=== PATIENT | female | born 1985 | race Caucasian/White ===

== ENCOUNTER → 2017-03-03 | Outpatient (CLI) | payer OTHER ==
[~2017-03-03] MED LIST: ACET1TAB43 PO; PREN-93 PO
--- NOTE | 2017-03-03 13:54 | Diagnostic Imaging Report ---
First trimester OB ultrasound. INDICATION: Dating. FINDINGS: There is a normal-appearing single intrauterine . An embryo is seen with cardiac activity at 174 beats per minute. The crown-rump length is at 9 weeks and 3 days. VIRA is 10/03/17. The uterus is retroflexed. There is a prominent hypoechoic area within the posterior aspect of the myometrium measuring 4 x 4.1 x 3.4 CM in size. This could be related to focal myometrial contraction versus a fibroid. Ovaries are obscured. IMPRESSION: 1. Live single intrauterine . 2. A 4 CM hypoechoic indeterminate lesion along the posterior myometrium could be related to focal myometrial contraction versus a fibroid. Reevaluation on followup exams recommended. Dictated by: Dictated on workstation # [id number]
== END ==
LOC: RAD 12:49
PROVIDERS: ATTEND Family Medicine
DX: Z34.81 Encounter for supervision of other normal pregnancy, first trimester (principal); Z3A.09 9 weeks gestation of pregnancy
CPT/HCPCS: 76801; 76817

== ENCOUNTER → 2017-05-16 | Outpatient (CLI) | payer SELFPAY ==
--- NOTE | 2017-05-16 11:27 | Diagnostic Imaging Report ---
INDICATION: survey. TECHNIQUE: Multiple real-time grayscale images were obtained over the gravid uterus. COMPARISON: 03/03/2017. FINDINGS: The heart rate is 143 beats per minute. The placenta is posterior. No placenta previa. The cervix appears closed and about 5.5 cm in length. The anatomy evaluation demonstrates normal appearance of the bladder and suggestion of two umbilical arteries. No ventriculomegaly. The four-chamber view appears unremarkable. The spine appears unremarkable. The stomach is seen. No hydronephrosis or cystic mass at the level of the kidneys. The cord insertion appears unremarkable. Biometrical measurements are as follows: Biparietal 4.43 cm, age 19 weeks 3 days. Head circumference 16.96 cm, age 19 weeks 5 days. Abdominal circumference 14.26 cm, age 19 weeks 5 days. Femur length 3.28 cm, age 20 weeks 2 days. Sonographic estimate age: 19 weeks 6 days. This compares with gestational age of 20 weeks and 0 day based on provided VIRA of 10/03/2017. Sonographic estimated date of delivery: 10-04-17. Estimated Weight: 317 gm (+/- 46 gm). LMP percentile: 37%. heart rate: 153 beats per minute. number: 1 of 1. IMPRESSION: Completed survey. Appropriate interval growth. Dictated by: Dictated on workstation # [id number]
== END ==
LOC: RAD 09:48
PROVIDERS: ATTEND Family Medicine
DX: Z36 Encounter for antenatal screening of mother (principal); Z3A.19 19 weeks gestation of pregnancy
CPT/HCPCS: 76805

== ENCOUNTER 2017-09-25 19:50 | Inpatient (IN) | payer MEDICAID ==
[~2017-09-25] VITALS: Ht 166.4 cm; Wt 96.2 kg
--- OUTSIDE RECORDS SUMMARY | 2017-09-25 19:55 | XMS REPORT | Continuity of Care Document ---
Author Author [facility] Address Unknown Phone Unavailable Allergies There is no data. Medications There is no data. Problems Date Dx Coded Attending Type Code Diagnosis Diagnosed By 09/14/2010 EATON SERVICER, ANTHONY L 789.09 Abdominal Pain Other Specified Site 09/14/2010 EATON SERVICER, ANTHONY L V22.2 Incidental 09/14/2010 EATON SERVICER, ANTHONY L 789.09 Abdominal Pain Other Specified Site 09/14/2010 EATON SERVICER, ANTHONY L V22.2 Incidental 02/17/2011 EATON SERVICER, ANTHONY L V22.1 , Normal Other 02/17/2011 EATON SERVICER, ANTHONY L V22.1 , Normal Other 03/02/2011 EATON SERVICER, ANTHONY L 623.5 Leukorrhea Not Specified As Infective 03/02/2011 EATON SERVICER, ANTHONY L V72.31 LOGISTICAL ENGINEER EXAM, ROUTINE 03/02/2011 EATON SERVICER, ANTHONY L 623.5 Leukorrhea Not Specified As Infective 03/02/2011 EATON SERVICER, ANTHONY L V72.31 LOGISTICAL ENGINEER EXAM, ROUTINE 06/28/2011 EATON SERVICER, ANTHONY L 724.2 lower back pain 06/28/2011 EATON SERVICER, ANTHONY L V24.2 Routine Follow-up 06/28/2011 EATON SERVICER, ANTHONY L 724.2 lower back pain 06/28/2011 EATON SERVICER, ANTHONY L V24.2 Routine Follow-up 10/15/2011 EATON SERVICER, ANTHONY L V72.42 EXAMINATION OR TEST POSITIVE RESULT 10/15/2011 EATON SERVICER, ANTHONY L V72.42 EXAMINATION OR TEST POSITIVE RESULT 10/28/2011 EATON SERVICER, ANTHONY L V22.1 , Normal Other 10/28/2011 EATON SERVICER, ANTHONY L V22.1 , Normal Other 12/06/2011 ANTHONY STOVER APRN 656.13 RH NEGATIVE 12/06/2011 ANTHONY STOVER APRN L 656.13 RH NEGATIVE 01/17/2012 ANTHONY STOVER APRN L 530.81 ESOPHAGEAL REFLUX 01/17/2012 ANTHONY STOVER APRN L 553.1 UMBILICAL HERNIA WITHOUT OBSTRUCTION OR GANGRENE 01/17/2012 ANTHONY STOVER APRN L 649.60 Uterine Size Date Discrepancy Unspecified As To Episode Of Care Or Not Applicable 01/17/2012 ANTHONY STOVER APRN L 530.81 ESOPHAGEAL REFLUX 01/17/2012 ANTHONY STOVER APRN L 553.1 UMBILICAL HERNIA WITHOUT OBSTRUCTION OR GANGRENE 01/17/2012 ANTHONY STOVER APRN L 649.60 Uterine Size Date Discrepancy Unspecified As To Episode Of Care Or Not Applicable 05/08/2012 JOLANTA MÉNDEZNANTHONY Rafael 649.00 TOBACCO USE DISORDER COMPLICATING CHILDBIRTH OR THE PUERPERIUM UNSPECIFIED TO EPISODE OF CARE OR NOT APPLICABLE 05/08/2012 JOLANTA MÉNDEZNANTHONY Rafael 649.00 TOBACCO USE DISORDER COMPLICATING CHILDBIRTH OR THE PUERPERIUM UNSPECIFIED TO EPISODE OF CARE OR NOT APPLICABLE 08/18/2012 ERGLADESHAUN MOHAN ANTHONY L V25.9 Gynecologic Services Contraceptive Management 08/18/2012 REGLADESHAUN SERVICER, ANTHONY L V25.9 Gynecologic Services Contraceptive Management Procedures Code [place] [address] THERAPUTIC INJ SQ/IM 08/18/2012 J1055 DEPO-PROVERA INJ 150 MG 08/18/2012 83516 XRAY THORACIC SPINE 2 VIEWS 08/18/2012 00895 XRAY LUMBAR SPINE 2 OR 3 VIEWS 08/18/2012 99674 URINE TEST (IN- HOUSE) 08/18/2012 Results There is no data. Encounters ACCT No. Visit Date/Time Discharge Status Pt. Type Provider Facility Loc./Unit Complaint [id number] 08/18/2012 11:32:00 08/18/2012 23:59:59 CLS Outpatient ANTHONY STOVER APRN [id number] 08/18/2012 11:32:00 08/18/2012 23:59:59 CLS Outpatient ANTHONY STOVER APRN
[2017-09-25 20:11] VITALS: BP 136/82
[2017-09-25] MEDS ORDERED: LACTATED RINGERS 1,000 ML IV ONE (20:17)
[2017-09-25] MEDS ORDERED: ZOLP10TA PO (20:24)
[2017-09-25] MEDS ORDERED: HYDR50CA PO (20:24)
[2017-09-25] MEDS ORDERED: RANI150T15 PO (20:24)
[2017-09-25] MEDS: LACTATED RINGERS 1,000 ML IV SCH (20:45)
[2017-09-25] MEDS ORDERED: D5 LR IV SOLUTION 1,000 ML IV ONE (21:32)
[2017-09-25] MEDS: D5 LR IV SOLUTION 1,000 ML IV SCH (21:45)
[2017-09-25] MEDS ORDERED: MISOPROSTOL 100 MCG (CYTOTEC) TAB ONE (21:48)
[2017-09-25] MEDS: MISOPROSTOL 100 MCG (CYTOTEC) TAB PV SCH (21:52)
[2017-09-25] MEDS ORDERED: TERBUTALINE INJ 1 MG/ML (BRETHINE) AMP SC PRN (22:00)
[2017-09-25] MEDS ORDERED: MINERAL OIL CONCENTRATE 99.9% 15 ML UDC TOP PRN (22:15)
[2017-09-25 22:16] LABS: BASOPHILS % (AUTO) 0 % (0-10); EOSINOPHILS # (AUTO) 0.1 10^3/uL (0.0-0.3); EOSINOPHILS % (AUTO) 1 % (0-10); LYMPHOCYTES # (AUTO) 1.5 X 10^3 (1.0-4.0); LYMPHOCYTES % (AUTO) 21 % (12-44); MEAN CORPUSCULAR HEMOGLOBIN 30 PG (25-34); MEAN CORPUSCULAR HGB CONC 33 G/DL (32-36); MEAN CORPUSCULAR VOLUME 90 FL (80-99); MEAN PLATELET VOLUME 10.3 FL (7.4-10.4); MONOCYTES # (AUTO) 0.6 X 10^3 (0.0-1.0); MONOCYTES % (AUTO) 8 % (0-12); NEUTROPHILS # (AUTO) 5.2 X 10^3 (1.8-7.8); NEUTROPHILS % (AUTO) 70 % (42-75); PLATELET COUNT 206 10^3/uL (130-400); RED BLOOD COUNT 4.09 10^6/uL (4.35-5.85); RED CELL DISTRIBUTION WIDTH 13.7 % (10.0-14.5); WHITE BLOOD COUNT 7.4 10^3/uL (4.3-11.0)
[2017-09-25] MEDS ORDERED: WITCH HAZEL(TUCKS) 40 EA JAR ONE (22:52)
[2017-09-25] MEDS ORDERED: BUTORPHANOL INJ 2 MG/ML (STADOL) VIAL IV ONE (23:00)
[2017-09-25] MEDS ORDERED: ZOLPIDEM 5 MG (AMBIEN) TAB PO PRN (23:00)
[2017-09-25] MEDS ORDERED: PROMETHAZINE INJ 25 MG/ML (PHENERGAN) AMP IVP PRN (23:00)
[2017-09-25] MEDS ORDERED: WITCH HAZEL(TUCKS) 40 EA JAR TOP PRN (23:00)
[2017-09-25 23:19] VITALS: BP 130/81
[2017-09-26] VITALS (52 sets, daily range): BP systolic 86–145; BP diastolic 55–92
[2017-09-26] MEDS: MISOPROSTOL 100 MCG (CYTOTEC) TAB PV SCH ×2 (02:05→06:23)
[2017-09-26] MEDS: CATHETER FLUSH 10 ML SYR IV SCH (04:19)
--- NOTE | 2017-09-26 05:51 | History & Physical-OB ---
OB - Chief Complaint & HPI Date/Time Date of Admission: Date of Admission: Sep 25, 2017 at 19:50 Time Seen by Provider: 21:00 Chief Complaint/History OB-Reason for Admission/Chief: Induction of Labor Hx : 4 Hx Para: 3 Hx Last Menstrual Period: 12/27/16 Estimated Date of Conception: 10/03/17 Expected Date of Delivery: Oct 03, 2017 Gestational Age in Weeks: 39 Gestational Age in Days: 0 Indication for induction: maternal discomfort Admission Nurse Assessment Rev: Yes History of Labs A negative, Antibody Negative, Rubella Immune, Hep B Negative, HIV Negative, HIV Negative Allergies and Home Medications Allergies Coded Allergies: No Known Drug Allergies (Unverified , 04/26/11) Home Medications Vit/Fe Fumarate/Fa 1 Each Tablet, 1 EACH PO, (Reported) OB - History Hx of Present Care: Yes Ultrasounds: Normal mid trimester US Medical Complications: Gastrointestinal (heartburn associated with , insomia associated with ) Information Pre-Hospital Medication Admins: PNV, Zantac, Flexeril PRN, Ambien PRN, Vistaril PRN Induced Hypertension: No Maternal Gestational Diabetes: No Hemorrhage: No Obstetrical History Hx : 4 Hx Para: 3 Hx # Term Pregnancies: 0 Hx # Pregnancies: 0 Number of Living Children: 3 Hx Termination: No Hx Total # of Abortions (Spona: 0 Hx Multiple Gestation: No Hx Ectopic : No Hx Stillbirth: No Hx Complication: No Hx Induced Hypertens: No Hx Maternal Gestational Diabet: No Hx Hemorrhage: No Delivery History Hx Dystocia: No Hx Forceps Assisted Delivery: No Hx Vacuum Extraction Assisted: No Hx Placenta Abnormality: No Hx Distress: No Hx Large For Gestational Age I: No Hx Small for Gestational Age I: No Hx Section: No Hx Vaginal Delivery Post C-Sec: No Hx Blood Disorders: No Adverse Rxn to Tranfusion: No Patient Past Medical History Heartburn Low Back Pain Social History/Family History HIV/AIDS: No Recent Infectious Disease Expo: No Alcohol Use: Denies Use Recreational Drug Use: No Smoking Cessation: Never smoker 2nd Hand Smoke Exposure: No Immunizations Hepatitis A: No Hepatitis B: Yes Tetanus Booster (TDap): Less than 5yrs Date of Influenza Vaccine: Jul 29, 2017 Rubella: immune RPR/VDRL: Negative GBS Status: Negative HBsAG: Negative OB - Admission Exam Physical Exam Vitals: Vital Signs 09/26/17 02:13 Temp 98.6 Pulse 104 Resp 18 B/P (MAP) 109/73 (85) O2 Delivery Room Air HEENT: NCAT Heart: Rhythm Normal Lungs: Clear Abdomen: Gravid Extremities: Edema (1+ lower extremity bilateraly) Cervical Dilatation: 1cm Effacement: 50% Station: -3 Membranes: Intact Heart Rate: 140's Accelerations: Accelerations Present Decelerations: No Decelerations Mitchell Scoring Tool (Modified) Dilation (cm): 1-2cm (1) Effacement (%): 31-51% (1) Descent/Station: -3 (0) Cervix Consistency: Soft (2) Cervix Position: Middle/Mid-Position (1) Mitchell Score: 8 Labs Laboratory Tests Test 09/25/17 20:45 Range/Units White Blood Count 7.4 4.3-11.0 10^3/uL Red Blood Count 4.09 L 4.35-5.85 10^6/uL Hemoglobin 12.3 11.5-16.0 G/DL Hematocrit 37 35-52 % Mean Corpuscular Volume 90 80-99 FL Mean Corpuscular Hemoglobin 30 25-34 PG Mean Corpuscular Hemoglobin Concent 33 32-36 G/DL Red Cell Distribution Width 13.7 10.0-14.5 % Platelet Count 206 130-400 10^3/uL Mean Platelet Volume 10.3 7.4-10.4 FL Neutrophils (%) (Auto) 70 42-75 % Lymphocytes (%) (Auto) 21 12-44 % Monocytes (%) (Auto) 8 0-12 % Eosinophils (%) (Auto) 1 0-10 % Basophils (%) (Auto) 0 0-10 % Neutrophils # (Auto) 5.2 1.8-7.8 X 10^3 Lymphocytes # (Auto) 1.5 1.0-4.0 X 10^3 Monocytes # (Auto) 0.6 0.0-1.0 X 10^3 Eosinophils # (Auto) 0.1 0.0-0.3 10^3/uL Basophils # (Auto) 0.0 0.0-0.1 10^3/uL OB - Assessment/Plan/Diagnosis Assessment Assessment: induction of labor Plan Plan: Induction Induction Method: per Misoprostol Protocol Other Plan vertex confirmed by ultrasound at bedside, 0.25 mcg cytotec placed in posterior vaginal fornix; Pt tolerated well. EFW 7 lb 4 oz. ELIE ZEPEDA DO Sep 26, 2017 05:51
[2017-09-26] MEDS ORDERED: BUTORPHANOL INJ 2 MG/ML (STADOL) VIAL ONE (05:53)
[2017-09-26] MEDS: D5 LR IV SOLUTION 1,000 ML IV SCH ×2 (05:59→13:55)
[2017-09-26] MEDS ORDERED: MISOPROSTOL 100 MCG (CYTOTEC) TAB ONE (06:07)
[2017-09-26] MEDS ORDERED: BUTORPHANOL INJ 2 MG/ML (STADOL) VIAL IV PRN (06:30)
[2017-09-26] MEDS ORDERED: ONDANSETRON 4 MG/2 ML (SDV) Z0FRAN IVP PRN (06:30)
[2017-09-26] MEDS ORDERED: PROMETHAZINE INJ 25 MG/ML (PHENERGAN) AMP IVP PRN (06:30)
[2017-09-26] MEDS: LACTATED RINGERS 1,000 ML IV SCH (08:50)
[2017-09-26] MEDS ORDERED: SUFENTA 0.6MCG/ML BUPIVA 0.125 100 ML ONE (08:51)
[2017-09-26] MEDS ORDERED: BUPIVACAINE 0.25% 30 ML (SENSORCAINE) VIAL ONE (09:33)
[2017-09-26] MEDS ORDERED: LACTATED RINGERS 1,000 ML IV ONE (09:59)
[2017-09-26] MEDS ORDERED: NALOXONE 0.4 MG/ML 1 ML (NARCAN) VIAL IV PRN (10:00)
[2017-09-26] MEDS ORDERED: ONDANSETRON 4 MG/2 ML (SDV) Z0FRAN IV PRN (10:00)
[2017-09-26] MEDS ORDERED: EPIDURAL (SUFENTA 0.6MCG/ML BUPIVA 0.125%) 100 ML BAG EPI SCH (10:00)
[2017-09-26] MEDS ORDERED: OXYTOCIN/NORMAL SALINE 500 ML IV ONE (12:58)
[2017-09-26] MEDS ORDERED: OXYTOCIN/NORMAL SALINE 500 ML IV SCH ×2 (13:15→18:46)
--- NOTE | 2017-09-26 17:22 | Progress Note (SOAP) ---
Subjective Subjective/Events-last exam Pt received 2 doses of cytotec overnight and is now 3-4 centimeters with an irregular contraction pattern. She received 1 dose of stadol for pain and is now requesting an epidural. FHR reassuring, occasional variable. Contractions moderate to palpation, patient tolerating well. FOB at bedside, supportive and appropriate. Review of Systems Date Seen by Provider: Sep 26, 2017 Time Seen by Provider: 10:00 General: No Chills, Fatigue, No Appetite HEENT: No Head Aches, No Visual Changes, No Ear Pain, No Dysphasia Pulmonary: No Dyspnea, No Cough Cardiovascular: No: Chest Pain, Palpitations, Lt Headedness Gastrointestinal: No: Nausea, Vomiting, Abdominal Pain Genitourinary: No Dysuria Musculoskeletal: No: neck pain, shoulder pain Neurological: No: Weakness, Numbness, Change in speech, Confusion, Seizures Objective Exam Last Set of Vital Signs Vital Signs Date Time Temp Pulse Resp B/P (MAP) Pulse Ox O2 Delivery O2 Flow Rate FiO2 09/26/17 14:35 83 18 122/77 (92) 99 Room Air 09/26/17 12:32 98.4 Capillary Refill : I&O Intake and Output 09/26/17 00:00 Intake Total 1000 ml Balance 1000 ml IV Total 1000 ml Daily Weight Change No General: Alert, Oriented X3, Cooperative, No Acute Distress HEENT: Atraumatic, PERRLA, EOMI, Mucous Memb Moist/[place] Neck: Supple, No JVD, No Thyromegaly Lungs: Clear to Auscultation, Normal Air Movement Heart: Regular Rate, Normal S1, Normal S2, No Murmurs Abdomen: Normal Bowel Sounds, Soft, No Tenderness, No Hepatosplenomegaly Extremities: No Clubbing, No Cyanosis, Normal Pulses Skin: No Rashes, No Breakdown, No Significant Lesion Neuro: Normal Gait, Normal Speech, Strength at 5/5 X4 Ext, Normal Tone, Sensation Intact Psych/Mental Status: Mental Status NL, Mood NL Other physical findings Gravid abdomen Results/Procedures Lab Laboratory Tests 09/25/17 20:45: White Blood Count 7.4, Red Blood Count 4.09L, Hemoglobin 12.3, Hematocrit 37, Mean Corpuscular Volume 90, Mean Corpuscular Hemoglobin 30, Mean Corpuscular Hemoglobin Concent 33, Red Cell Distribution Width 13.7, Platelet Count 206, Mean Platelet Volume 10.3, Neutrophils (%) (Auto) 70, Lymphocytes (%) (Auto) 21 , Monocytes (%) (Auto) 8, Eosinophils (%) (Auto) 1, Basophils (%) (Auto) 0, Neutrophils # (Auto) 5.2, Lymphocytes # (Auto) 1.5, Monocytes # (Auto) 0.6, Eosinophils # (Auto) 0.1, Basophils # (Auto) 0.0 Assessment/Plan Assessment/Plan Admission Dx 39 week IUP Induction of Labor Plan Will have anesthesia place epidural and then will AROM. Augmentation with pitocin if needed. Anticipate vaginal delivery. Clinical Quality Measures DVT/VTE Risk/Contraindication: Risk Factor Score Per Nursin RFS Level Per Nursing on Admit: 1=Low/No VTE PPX ELIE ZEPEDA DO Sep 26, 2017 17:22
--- NOTE | 2017-09-26 17:28 | Progress Note (SOAP) ---
Subjective Subjective/Events-last exam Pt starting to feel more pressure with contractions SVE 7/100/+1. Pitocin increased to 6 mU. FHR overall reassuring, variable decelerations with rapid return to baseline Room prepped for delivery. Maternal temp 100.3. Review of Systems Date Seen by Provider: Sep 26, 2017 Time Seen by Provider: 16:00 General: Night Sweats HEENT: No Head Aches, No Visual Changes, No Eye Pain Pulmonary: No Dyspnea, No Cough Cardiovascular: No: Chest Pain, Palpitations, Orthopnea Gastrointestinal: No: Nausea, Vomiting, Diarrhea, Constipation Genitourinary: No Dysuria, No Frequency Musculoskeletal: No: neck pain, shoulder pain Neurological: No: Weakness, Numbness, Change in speech, Confusion, Seizures Objective Exam Last Set of Vital Signs Vital Signs Date Time Temp Pulse Resp B/P (MAP) Pulse Ox O2 Delivery O2 Flow Rate FiO2 09/26/17 14:35 83 18 122/77 (92) 99 Room Air 09/26/17 12:32 98.4 Capillary Refill : I&O Intake and Output 09/26/17 00:00 Intake Total 1000 ml Balance 1000 ml IV Total 1000 ml Daily Weight Change No General: Alert, Oriented X3, Cooperative, No Acute Distress HEENT: Atraumatic, PERRLA, EOMI, Mucous Memb Moist/[place] Neck: Supple, No JVD, No Thyromegaly Lungs: Clear to Auscultation, Normal Air Movement Heart: Regular Rate, Normal S1, Normal S2 Abdomen: Normal Bowel Sounds, Soft, No Tenderness, No Hepatosplenomegaly, No Masses Extremities: No Clubbing, No Cyanosis, Normal Pulses Skin: No Rashes, No Breakdown Neuro: Normal Speech, Normal Tone, Cranial Nerves 3-12 NL Psych/Mental Status: Mental Status NL, Mood NL Results/Procedures Lab Laboratory Tests 09/25/17 20:45: White Blood Count 7.4, Red Blood Count 4.09L, Hemoglobin 12.3, Hematocrit 37, Mean Corpuscular Volume 90, Mean Corpuscular Hemoglobin 30, Mean Corpuscular Hemoglobin Concent 33, Red Cell Distribution Width 13.7, Platelet Count 206, Mean Platelet Volume 10.3, Neutrophils (%) (Auto) 70, Lymphocytes (%) (Auto) 21 , Monocytes (%) (Auto) 8, Eosinophils (%) (Auto) 1, Basophils (%) (Auto) 0, Neutrophils # (Auto) 5.2, Lymphocytes # (Auto) 1.5, Monocytes # (Auto) 0.6, Eosinophils # (Auto) 0.1, Basophils # (Auto) 0.0 Assessment/Plan Assessment/Plan Admission Dx Term Induction of Labor Plan Anticipate vaginal delivery, will monitor closely for any continued elevation in maternal temperature.. Clinical Quality Measures DVT/VTE Risk/Contraindication: Risk Factor Score Per Nursin RFS Level Per Nursing on Admit: 1=Low/No VTE PPX ELIE ZEPEDA DO Sep 26, 2017 17:28
--- NOTE | 2017-09-26 17:33 | OB Labor & Delivery Record ---
L&D History Date of Service Date of Service: Sep 26, 2017 History Expected Date of Delivery: Oct 03, 2017 Gestational Age in Weeks: 39 Hx : 4 Hx Para: 3 Complications Events: Routine care Induction of Labor - Elective Operative Indications (Cesarea: N/A-Vaginal Delivery Intrapartal Events: None Other Complications Maternal Tmax 100.3 L&D Stage1 Stage One Onset of Labor - Date: Sep 26, 2017 Onset of Labor - Time: 06:00 Duration - Stage I: 10 hr 37 min Monitors and Tracing Monitor Mode: External Heart Rate: 150 Monitor Accelerations: Uniform Monitor Decelerations: Variable Station: -1 Patternator Variability: Average (6-10) Presentation: Vertex Vital Signs VS - Last 72 Hours, by Label 09/25/17 09/25/17 09/26/17 09/26/17 20:11 23:19 02:13 05:32 Temp 98.4 98.5 98.6 98.4 Pulse 100 83 104 85 Resp 18 18 18 18 B/P (MAP) 136/82 (100) 130/81 (97) 109/73 (85) 113/75 (88) O2 Delivery Room Air Room Air Room Air Room Air 09/26/17 09/26/17 09/26/17 09/26/17 09:27 09:31 09:40 09:45 Temp 97.7 Pulse 98 93 95 94 Resp 18 20 20 20 B/P (MAP) 121/79 (93) 124/78 (93) 132/79 (96) 134/73 (93) Pulse Ox 99 99 100 100 O2 Delivery Room Air Room Air Room Air Room Air 09/26/17 09/26/17 09/26/17 09/26/17 09:50 09:55 10:00 10:05 Pulse 93 112 107 107 Resp 20 20 18 16 B/P (MAP) 122/71 (88) 109/55 (73) 127/68 (87) 130/74 (92) Pulse Ox 99 99 99 98 O2 Delivery Room Air Room Air Room Air Room Air 09/26/17 09/26/17 09/26/17 09/26/17 10:10 10:15 10:19 10:22 Pulse 105 112 87 102 Resp 16 18 18 18 B/P (MAP) 111/61 (78) 111/58 (75) 104/58 (73) 104/68 (80) Pulse Ox 99 99 99 100 O2 Delivery Room Air Room Air Room Air Room Air 09/26/17 09/26/17 09/26/17 09/26/17 10:27 10:32 10:37 10:50 Pulse 94 96 92 97 Resp 18 16 16 18 B/P (MAP) 86/55 (65) 107/62 (77) 107/62 (77) 119/75 (90) Pulse Ox 100 100 100 100 O2 Delivery Room Air Room Air Room Air Room Air 09/26/17 09/26/17 09/26/17 09/26/17 11:05 11:20 11:35 12:05 Pulse 88 81 87 88 Resp 18 18 18 18 B/P (MAP) 120/77 (91) 99/69 (79) 121/80 (94) 118/76 (90) Pulse Ox 100 100 100 99 O2 Delivery Room Air Room Air Room Air Room Air 09/26/17 09/26/17 09/26/17 09/26/17 12:15 12:32 12:45 13:05 Temp 98.4 Pulse 97 95 87 83 Resp 20 20 20 18 B/P (MAP) 126/83 (97) 116/71 (86) 121/79 (93) 120/77 (91) Pulse Ox 100 99 99 98 O2 Delivery Room Air Room Air Room Air Room Air 09/26/17 09/26/17 09/26/17 09/26/17 13:17 13:33 13:50 14:05 Pulse 97 97 110 81 Resp 18 18 18 18 B/P (MAP) 116/71 (86) 122/82 (95) 136/72 (93) 117/71 (86) Pulse Ox 98 99 93 99 O2 Delivery Room Air Room Air Room Air Room Air 09/26/17 09/26/17 14:20 14:35 Pulse 82 83 Resp 18 18 B/P (MAP) 123/84 (97) 122/77 (92) Pulse Ox 98 99 O2 Delivery Room Air Room Air Rupture of Membranes Spontaneous Ruture of Membrane: No Amniotic Membrane Rupture Time: 1042 Amniotic Membrane Fluid Desc.: Clear Vaginal Bleeding Description: Normal Show Induction/Anesthesia Epidural Cath Placement - Time: 0942 L&D Stage2 Stage Two Stage II Date: Sep 26, 2017 Stage II Time: 16:25 Stage II Duration: 12 min Monitors and Tracing Monitor Mode: External Heart Rate: 150 Monitor Accelerations: Uniform Patternator Variability: Average (6-10) Position: Right Occiput Anterior Presentation: Vertex Cord Descript/Complications Cord Vessel Description: 3 Vessels Complications Nuchal cord x1 reduced after delivery of head Delivery Type Delivery Method: Spontaneous Vaginal Anterior Shoulder: Left Episiotomy/Perineal Laceration Episiotomy Description: None Condition of Infant Delivery Delivery Date & Time: 09/26/17 1637 1 minute Comment: 8 5 minute Comment: 9 Notes viable female delivered and to maternal abdomen; delayed cord clamping for 75 seconds then cord double clamped and cut by FOB. Dried and stimulated with spontaneous and lusty cry. Condition of Infant Condition of : Living Exam: No Observed Abnormalities Resuscitation Resuscitation: N/A - Spontaneous Resp L&D Stage3 Stage Three Stage III Date: Sep 26, 2017 Stage III Time: 16:44 Stage III Duration: 7 min Pictocin Pitocin Administration mu/min: 4 Pitocin ml/hr: 4 Placenta Delivery Placenta Delivery: Spontaneous Delivery Summary Summary Total Labor Time 10 hours 44 minutes Estimated blood loss (mL): 150 mL Attending at delivery: Dr. Elida Arshad DO Condition of Delivery Examined: Cervix Examined, Uterus Explored Post Hemorrhage: No Condition of Mother stable Condition of Infant (s) ELIE Hinson DO Sep 26, 2017 17:33
[2017-09-26] MEDS ORDERED: TETANUS,DIPTH,PERTUSS P/F (BOOSTRIX) 0.5 ML VIAL IM ONE (19:00)
[2017-09-26] MEDS ORDERED: BENZOCAINE/MENTHOL (DERMOPLAST) 56 ML CAN TP PRN (19:00)
[2017-09-26] MEDS ORDERED: MEASLES,MUMPS,RUBELLA 1 EA INJ SQ ONE (19:00)
[2017-09-26] MEDS ORDERED: WITCH HAZEL(TUCKS) 40 EA JAR TOP PRN (19:00)
[2017-09-26] MEDS: IBUPROFEN 600 MG (MOTRIN) TAB PO SCH (21:16)
[2017-09-27 02:05] VITALS: BP 98/66
[2017-09-27] MEDS: IBUPROFEN 600 MG (MOTRIN) TAB PO SCH ×4 (03:27→22:12)
[2017-09-27] MEDS: PRENATAL VITAMIN 1 EA TAB PO SCH ×2 (04:41→09:01)
[2017-09-27 05:00] VITALS: BP 102/64
[2017-09-27 06:22] LABS: BASOPHILS % (AUTO) 0 % (0-10); EOSINOPHILS # (AUTO) 0.2 10^3/uL (0.0-0.3); EOSINOPHILS % (AUTO) 2 % (0-10); LYMPHOCYTES # (AUTO) 1.6 X 10^3 (1.0-4.0); LYMPHOCYTES % (AUTO) 17 % (12-44); MEAN CORPUSCULAR HEMOGLOBIN 30 PG (25-34); MEAN CORPUSCULAR HGB CONC 33 G/DL (32-36); MEAN CORPUSCULAR VOLUME 92 FL (80-99); MEAN PLATELET VOLUME 9.9 FL (7.4-10.4); MONOCYTES # (AUTO) 0.8 X 10^3 (0.0-1.0); MONOCYTES % (AUTO) 8 % (0-12); NEUTROPHILS # (AUTO) 6.9 X 10^3 (1.8-7.8); NEUTROPHILS % (AUTO) 73 % (42-75); PLATELET COUNT 156 10^3/uL (130-400); RED BLOOD COUNT 3.54 10^6/uL (4.35-5.85); RED CELL DISTRIBUTION WIDTH 13.8 % (10.0-14.5); WHITE BLOOD COUNT 9.4 10^3/uL (4.3-11.0)
[2017-09-27 08:00] VITALS: BP 100/63
--- NOTE | 2017-09-27 08:19 | Postpartum Progress Note ---
Note Note Day # 1 Subjective: Patient is without complaints. Ambulating, voiding. Tolerating a regular diet without nausea or vomiting. Normal lochia. Pain is well controlled with oral pain medications. Breast feeding but having some difficulty with latch - has been pumping. No concerns from nursing staff. Objective: Physical Exam: General - Alert and oriented, no apparent distress Abdomen - Soft, appropriately tender to palpation, non-distended, fundus firm at umbilicus Extremities - no edema, negative Martha's bilaterally, trace edema Heart - Regular rate and rhythm, no murmurs/rubs Lungs - CTAB, no shortness of breath, cough, wheezing or murmurs HEENT - PERRLA, normocephalic, atraumatic, face symmetric, mucous membranes pink Assessment: Post- day # 1, status post spontaneous vaginal delivery. Recovering well, hemodynamically stable Acute blood loss anemia , some difficulty with latch, has been pumping. Blood type A negative, RhoGam prior to discharge Plan: Routine care. Encourage breast feeding. Encourage ambulation. Ferrous sulfate supplementation. Plan for discharge tomorrow Vitals - Labs Vital Signs - I&O Vital Signs Date Time Temp Pulse Resp B/P (MAP) Pulse Ox O2 Delivery O2 Flow Rate FiO2 09/27/17 05:00 96.7 77 18 102/64 (77) 98 Room Air 09/27/17 02:05 97.5 78 20 98/66 (77) 98 Room Air 09/26/17 20:30 98.5 114 20 111/71 (84) 98 Room Air 09/26/17 20:01 107 116/62 (80) 09/26/17 19:46 112 111/60 (77) 09/26/17 19:31 123 115/62 (79) 09/26/17 19:16 108 114/60 (78) 09/26/17 19:01 111 109/59 (76) 09/26/17 18:01 99.3 112 20 118/86 (97) Room Air 09/26/17 17:46 99.3 100 20 119/57 (77) Room Air 09/26/17 17:31 99.9 93 20 111/56 (74) Room Air 09/26/17 17:17 100.1 90 20 120/69 (86) Room Air 12/18/17 17:01 100.3 97 20 124/70 (88) Room Air 09/26/17 16:50 100.3 113 20 108/55 (72) Room Air 09/26/17 16:35 127 20 145/88 (107) 99 Room Air 09/26/17 16:20 100.2 115 20 138/76 (96) 98 Room Air 09/26/17 16:05 92 18 126/81 (96) 99 Room Air 09/26/17 15:50 95 20 123/78 (93) 99 Room Air 09/26/17 15:34 81 20 136/79 (98) 100 Room Air 09/26/17 15:18 97 20 132/92 (105) 99 Room Air 09/26/17 15:02 100.3 101 20 125/90 (102) 98 Room Air 09/26/17 14:47 95 20 120/81 (94) 98 Room Air 09/26/17 14:35 83 18 122/77 (92) 99 Room Air 09/26/17 14:20 82 18 123/84 (97) 98 Room Air 09/26/17 14:05 81 18 117/71 (86) 99 Room Air 09/26/17 13:50 110 18 136/72 (93) 93 Room Air 09/26/17 13:33 97 18 122/82 (95) 99 Room Air 09/26/17 13:17 97 18 116/71 (86) 98 Room Air 09/26/17 13:05 83 18 120/77 (91) 98 Room Air 09/26/17 12:45 87 20 121/79 (93) 99 Room Air 09/26/17 12:32 98.4 95 20 116/71 (86) 99 Room Air 09/26/17 12:15 97 20 126/83 (97) 100 Room Air 09/26/17 12:05 88 18 118/76 (90) 99 Room Air 09/26/17 11:35 87 18 121/80 (94) 100 Room Air 09/26/17 11:20 81 18 99/69 (79) 100 Room Air 09/26/17 11:05 88 18 120/77 (91) 100 Room Air 09/26/17 10:50 97 18 119/75 (90) 100 Room Air 09/26/17 10:37 92 16 107/62 (77) 100 Room Air 09/26/17 10:32 96 16 107/62 (77) 100 Room Air 09/26/17 10:27 94 18 86/55 (65) 100 Room Air 09/26/17 10:22 102 18 104/68 (80) 100 Room Air 09/26/17 10:19 87 18 104/58 (73) 99 Room Air 09/26/17 10:15 112 18 111/58 (75) 99 Room Air 09/26/17 10:10 105 16 111/61 (78) 99 Room Air 09/26/17 10:05 107 16 130/74 (92) 98 Room Air 09/26/17 10:00 107 18 127/68 (87) 99 Room Air 09/26/17 09:55 112 20 109/55 (73) 99 Room Air 09/26/17 09:50 93 20 122/71 (88) 99 Room Air 09/26/17 09:45 94 20 134/73 (93) 100 Room Air 09/26/17 09:40 95 20 132/79 (96) 100 Room Air 09/26/17 09:31 93 20 124/78 (93) 99 Room Air 09/26/17 09:27 97.7 98 18 121/79 (93) 99 Room Air Labs Laboratory Tests 09/27/17 06:08: White Blood Count 9.4, Red Blood Count 3.54L, Hemoglobin 10.7L, Hematocrit 33L, Mean Corpuscular Volume 92, Mean Corpuscular Hemoglobin 30, Mean Corpuscular Hemoglobin Concent 33, Red Cell Distribution Width 13.8, Platelet Count 156, Mean Platelet Volume 9.9, Neutrophils (%) (Auto) 73, Lymphocytes (%) (Auto) 17, Monocytes (%) (Auto) 8, Eosinophils (%) (Auto) 2, Basophils (%) (Auto) 0, Neutrophils # (Auto) 6.9, Lymphocytes # (Auto) 1.6, Monocytes # (Auto) 0.8, Eosinophils # (Auto) 0.2, Basophils # (Auto) 0.0 ELIE ZEPEDA DO Sep 27, 2017 08:19
[2017-09-27] MEDS: PANTOPRAZOLE 40 MG (PROTONIX) TAB PO SCH ×2 (09:01→18:40)
[2017-09-27 12:00] VITALS: BP 103/71
--- NOTE | 2017-09-27 17:04 | Anesthesia-Regional Post-Op ---
Regional Patient Condition Mental Status: Alert, Oriented x3 Circulation: Same as Pre-Op Headache: Absent Sensation: Full Recovery Motor Block: Absent Post Op Complications Complications None Follow Up Care/Instructions Patient Instructions None needed. Anesthesia/Patient Condition Patient is doing well, no complaints, stable vital signs, no apparent adverse anesthesia problems. No complications reported per nursing. MOE TYLER CRNA Sep 27, 2017 17:04
[2017-09-27] MEDS: CATHETER FLUSH 10 ML SYR IV SCH ×5 (18:34→18:39)
[2017-09-27] MEDS: D5 LR IV SOLUTION 1,000 ML IV SCH (18:35)
[2017-09-27 20:00] VITALS: BP 113/79
[2017-09-28 01:30] VITALS: BP 110/67
[2017-09-28] MEDS: PANTOPRAZOLE 40 MG (PROTONIX) TAB PO SCH (07:00)
[2017-09-28 09:20] VITALS: BP 105/69
[2017-09-28] MEDS: PRENATAL VITAMIN 1 EA TAB PO SCH (09:22)
[2017-09-28] MEDS: IBUPROFEN 600 MG (MOTRIN) TAB PO SCH (09:22)
--- NOTE | 2017-09-28 10:41 | Discharge Summary ---
Diagnosis/Chief Complaint Date of Admission Sep 25, 2017 at 19:50 Date of Discharge 09/28/17 Admission Diagnosis Admission Diagnosis Term Elective Induction of Labor Supervision of other normal Discharge Diagnosis Term - Delivered Spontaneous Vaginal Delivery after Induction of Labor Mother Blood Loss Anemia Rh Negative Mother with Rh Positive in the Period Mother Chief Complaint/HPI Chief Complaint/HPI 31 year old female G4 now [id number] was admitted 09/25 overnight for elective cytotec induction. Her fetus was confirmed to be vertex on arrival with bedside ultrasound. 0.25 mcg cytotec was placed in posterior vaginal fornix after IV access was established and lie was confirmed. Pt was 1/50/-3, mid position and soft. Patient proceeded to contract well from cytotec, received a second dose overnight, and requested pain medication around 0600 on 09/26. She was found to be 3-4 cm; the decision was made to hold her 3rd dose of cytotec. An epidural was requested by the patient and placed by anesthesia. She had AROM at 1042 with clear fluid and pitocin was started per protocol a short time later to obtain adequate labor. The patient progressed well at delivered a healthy viable female over an intact perineum at 1637 on . Delayed cord clamping was instituted per ACOG recommendations, and after ~ 75 seconds when the cord stopped pulsating, the cord was double clamped and cut by FOB. was attended to by awaiting nursery staff and had no complications. Patient was given pitocin at bolus rate x1 bag to control bleeding, and her blood loss was a minimal 150 cc. She went on to have an uneventful course, other than some difficulties . She is currently pumping and reports this is an issue she has had with all of her children. Her baby is O positive and she will received RhoGam prior to discharge today. Discharge Summary-Simple/Stand Procedures Vaginal Delivery Epidural Bedside Ultrasound Consultations Anesthesia Discharge Physical Examination Allergies: Coded Allergies: No Known Drug Allergies (Unverified , 04/26/11) Vitals & I&Os Vital Sign - Last 12Hours Date Time Temp Pulse Resp B/P (MAP) Pulse Ox O2 Delivery O2 Flow Rate FiO2 09/28/17 09:20 97.9 74 18 105/69 (81) Room Air 09/28/17 01:30 98 General Appearance: Alert, Oriented X3, Cooperative HEENT: Atraumatic, PERRLA, EOMI, Mucous Memb Moist/[place] Respiratory: Clear to Auscultation, Normal Air Movement Cardiovascular: Regular Rate, Normal S1, Normal S2, No Murmurs Abdominal: Normal Bowel Sounds, Soft, No Tenderness, No Hepatosplenomegaly, No Masses (appropropriate post gravid uterus) Extremities: No Clubbing, No Cyanosis, Normal Pulses, Other (neg gus's bilaterally) Skin: No Rashes, No Significant Lesion Neuro: Normal Gait, Normal Speech, Strength at 5/5 X4 Ext, Normal Tone, Sensation Intact, Cranial Nerves 3-12 NL Psych/Mental Status: Mental Status NL, Mood NL Hospital Course See final discharge diagnosis. Labs Laboratory Tests Test 09/25/17 20:45 09/27/17 06:08 Range/Units White Blood Count 7.4 9.4 4.3-11.0 10^3/uL Red Blood Count 4.09 L 3.54 L 4.35-5.85 10^6/uL Hemoglobin 12.3 10.7 L 11.5-16.0 G/DL Hematocrit 37 33 L 35-52 % Mean Corpuscular Volume 90 92 80-99 FL Mean Corpuscular Hemoglobin 30 30 25-34 PG Mean Corpuscular Hemoglobin Concent 33 33 32-36 G/DL Red Cell Distribution Width 13.7 13.8 10.0-14.5 % Platelet Count 206 156 130-400 10^3/uL Mean Platelet Volume 10.3 9.9 7.4-10.4 FL Neutrophils (%) (Auto) 70 73 42-75 % Lymphocytes (%) (Auto) 21 17 12-44 % Monocytes (%) (Auto) 8 8 0-12 % Eosinophils (%) (Auto) 1 2 0-10 % Basophils (%) (Auto) 0 0 0-10 % Neutrophils # (Auto) 5.2 6.9 1.8-7.8 X 10^3 Lymphocytes # (Auto) 1.5 1.6 1.0-4.0 X 10^3 Monocytes # (Auto) 0.6 0.8 0.0-1.0 X 10^3 Eosinophils # (Auto) 0.1 0.2 0.0-0.3 10^3/uL Basophils # (Auto) 0.0 0.0 0.0-0.1 10^3/uL Discussion & Recommendations Patient to be discharged to home with after receiving rhogam today. Routine instructions and follow up. Pelvic rest until seen in office. Discharge Condition at discharge Stable Instructions to patient/family Please see electronic discharge instructions given to patient. Discharge Medications Reviewed and agree with Discharge Medication list on patient's Discharge Instruction sheet Clinical Quality Measures DVT/VTE Risk/Contraindication: Risk Factor Score Per Nursin RFS Level Per Nursing on Admit: 1=Low/No VTE PPX ELIE ZEPEDA DO Sep 28, 2017 10:41
[2017-09-28] MEDS ORDERED: IBUP-1773 PO (10:46)
--- NOTE | 2017-09-28 10:51 | Discharge Instructions ---
Discharge Inst-[facility] Depart Medications New, Converted or Re-Newed RX: Transmitted to Pharmacy Final Diagnosis Term - Delivered Mother Blood Loss Anemia Rh Negative Mother with Rh Positive Infant New Medications: Ibuprofen (Ibuprofen) 600 Mg Tablet 600 MG PO Q6H PRN for cramping or pain MDD 4 tablets for 28 Days, #112 TAB 1 Refill Continued Medications: Vit/Fe Fumarate/Fa ( Multivitamins Tablet) 1 Each Tablet 1 EACH PO Follow Up/Instructions Goal/Follow Up: Follow up in 4-6 weeks for routine postparutm care Patient Instructions: Pelvic rest until seen in office Activity Activity: Activity as Tolerated Driving Instructions: You May Drive NO SMOKING: NO SMOKING Nothing Inside Vagina: No Douching, No [place], No Tampons Diet Discharge Diet: No Restrictions Return to The Hospital For: Fever >101, foul or malodorous vaginal discharge, severe pain uncontrolled by medications, saturating more than 1 pad per hour for 2 hours in a row, clots larger than the size of a fist, headache/visual changes/epigastric pain that does not improve with rest and medications, or if directed to proceeed to the ED by the senior talent management consultant provider Symptoms to Report to : Bleeding Excessive, Pain Increased, Pain/Pressure in Chest, Heart Beat Irreg/Pounding, Pain/Pressure in Shoulder, Vaginal Discharge Foul, Dizziness/Fainting, Shortness of Breath For Any Problems or Questions: Contact Your Physician ELIE ZEPEDA DO Sep 28, 2017 10:51
== END 2017-09-28 14:00 | disposition home or self-care (01) | DRG 775 ==
LOC: LDRP 19:50
PROVIDERS: ADMIT Family Medicine; ATTEND Family Medicine
PROC: 10E0XZZ Delivery of Products of Conception, External Approach (ICD-10-PCS; principal; 2017-09-26)
PROC: 3E0P7GC Introduction of Other Therapeutic Substance into Female Reproductive, Via Natural or Artificial Opening (ICD-10-PCS; 2017-09-26)
DX: O69.81X0 Labor and delivery complicated by cord around neck, without compression, not applicable or unspecified (principal); O90.81 Anemia of the puerperium; D62 Acute posthemorrhagic anemia; O36.0930 Maternal care for other rhesus isoimmunization, third trimester, not applicable or unspecified; Z3A.39 39 weeks gestation of pregnancy; Z37.0 Single live birth
CPT/HCPCS: 36415; 83033; 85025; 86850; 86900; 86901